=== PATIENT | male | born 1985 | race Two or more races ===

== ENCOUNTER 2016-05-11 18:49 | Emergency (ER) | payer BC, OTHER ==
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
[2016-05-11 19:07] VITALS: BP 133/46; PULSE 75; TEMP 98.9; BMI 26.9
--- NOTE | 2016-05-11 19:35 | PDOC ---
*Physical Exam - Vital Signs Last Vital Signs Temp Pulse Resp BP Pulse Ox 98.9 F 75 19 133/46 98 05/11/16 19:01 05/11/16 19:01 05/11/16 19:01 05/11/16 19:01 05/11/16 19:01 Medical Decision Making - Medical Decision Making 05/11/16 19:31 Pt unable to be located in the waiting room, hallways, and ER ramp *DC/Admit/Observation/Transfer Diagnosis at time of Disposition: Laceration - Discharge Dispostion Disposition: ELOPED
== END 2016-05-11 20:42 | disposition left against medical advice (07) ==
LOC: JERFT 18:49
DX: Z53.21 Procedure and treatment not carried out due to patient leaving prior to being seen by health care provider (principal)
CPT/HCPCS: 99281-25